=== PATIENT | female | born 1995 | race Native Hawaiian/Other Pacific Islander ===

== ENCOUNTER → 2017-09-15 | Outpatient (CLI) | payer OTHER ==
--- NOTE | 2017-09-15 10:08 | DIAGNOSTIC IMAGING REPORT ---
MRI OF THE BRAIN WITHOUT CONTRAST CLINICAL HISTORY: MIGRAINE W/O AURA INCREASING HEADACHES COMPARISON STUDY: None. FINDINGS: The patient has a needle phobia, and refused intravenous contrast. Sagittal T1, axial diffusion, proton density and T2 weighted axial, coronal FLAIR, and axial T1-weighted images were acquired. No intra or extra-axial mass lesions are visualized Axial diffusion-weighted images reveal no evidence of acute or subacute infarction. There is no evidence of ventricular dilatation. Proton density T2-weighted and FLAIR images reveal no significant intraparenchymal signal abnormalities. There are no abnormal flow voids. There are polypoid mucosal densities within the maxillary sinuses. IMPRESSION: Inflammatory polyp/retention cysts within the maxillary sinuses. Otherwise normal noncontrast MRI of the brain. Electronically signed by: Luis Enrique Brooks M.D. 09/15/2017 10:07 AM Dictated Date/Time: 09/15/2017 10:05 AM
== END | disposition home or self-care (01) ==
LOC: C.MRI 09:19
PROVIDERS: ATTEND Family Medicine
DX: G43.009 Migraine without aura, not intractable, without status migrainosus (principal); R93.0 Abnormal findings on diagnostic imaging of skull and head, not elsewhere classified